=== PATIENT | female | born 1985 | race Caucasian/White ===

== ENCOUNTER 2018-03-18 17:03 | Emergency (ER) | payer OTHER ==
[~2018-03-18] VITALS: Ht 160 cm; Wt 63.5 kg
[2018-03-18 17:05] VITALS: BP_SYST 126
[2018-03-18] MEDS ORDERED: LORazepam 2 MG/ML VIAL (FOR ER USE) IVP ONE (17:15)
[2018-03-18] MEDS ORDERED: NACL 0.9% 1,000 ML IV ONE (17:15)
[2018-03-18 19:08] VITALS: BP_SYST 126
== END 2018-03-18 19:08 | disposition home or self-care (01) ==
LOC: SED 17:03
DX: F41.9 Anxiety disorder, unspecified (principal); R03.0 Elevated blood-pressure reading, without diagnosis of hypertension
CPT/HCPCS: 81025; 96374; 99284; J2060

== ENCOUNTER 2020-02-13 06:09 | Emergency (ER) | payer MEDICAID, OTHER ==
[~2020-02-13] VITALS: Ht 157.5 cm; Wt 72.6 kg
[2020-02-13 06:16] VITALS: BP_SYST 135
[2020-02-13] MEDS ORDERED: NACL 0.9% 1,000 ML IV ONE (06:28)
[2020-02-13] MEDS ORDERED: PROCHLORPERAZINE EDISYLATE 10 MG/2 ML VIAL IVP ONE (06:30)
[2020-02-13] MEDS ORDERED: DIPHENHYDRAMINE INJ 50 MG/ML VIAL IVP ONE (06:30)
[2020-02-13] MEDS ORDERED: KETOROLAC TROMETHAMINE 30 MG VIAL IVP ONE (06:30)
[2020-02-13 07:42] VITALS: BP_SYST 127
== END 2020-02-13 07:42 | disposition home or self-care (01) ==
LOC: SED 06:09
DX: G43.901 Migraine, unspecified, not intractable, with status migrainosus (principal); F12.90 Cannabis use, unspecified, uncomplicated
CPT/HCPCS: 96361; 96374; 96375; 99284; J0780; J1200; J1885; J7030